=== PATIENT | male | born 1965 | race American Indian/Alaskan Native ===

== ENCOUNTER 2019-01-06 14:59 | Observation (INO) | payer SELFPAY ==
--- NOTE | 2019-01-06 15:26 | Event Note ---
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 Further treatment and workup at subsequent clinical providers discretion. Patient/guardian urged not to elope from the ED as their condition may be serious if not clinically assessed and managed. Initial orders include: ekg labs
--- NOTE | 2019-01-06 15:52 | XRay Report ---
CHEST 2 VIEWS INDICATION: chest pain and sob. COMPARISON: None FINDINGS: Support devices: None. Heart: Within normal limits. Lungs/pleura: No acute air space or interstitial disease. No pneumothorax. Additional findings: None. IMPRESSION: No acute findings. Signer Name: Tuan Walker Jr, MD Signed: 01/06/2019 3:48 PM Workstation Name: [id number]
[2019-01-06 16:14] LABS: Hematocrit 46.4 % (35.5-45.6); Hemoglobin 15.9 gm/dl (11.8-15.2); Mean Corpuscular HGB Conc 34 % (32-34); Mean Corpuscular Volume 85 fl (84-94); Platelet Count 197 K/mm3 (140-440); Red Blood Count 5.48 M/mm3 (3.65-5.03); Red Cell Distribution Width 12.7 % (13.2-15.2)
[2019-01-06 16:30] LABS: Alanine Aminotransferase 17 units/L (7-56); Albumin 4.7 g/dL (3.9-5); BUN/Creatinine Ratio 12; Blood Urea Nitrogen 11 mg/dL (9-20); Calcium 9.5 mg/dL (8.4-10.2); Hemolysis Index 9
--- NOTE | 2019-01-06 16:42 | Emergency Department Report ---
ED General Adult HPI - General Chief complaint: Headache Stated complaint: R ARM NUMBNESS Time Seen by Provider: 01/06/19 16:10 Source: patient Mode of arrival: Ambulatory Limitations: No Limitations - History of Present Illness Initial comments: Patient is a 53-year-old male that presents to the emergency room with complaints of chest pain, shortness of breath, dyspnea on exertion, right arm pain and swelling and headache. Patient states his headache has been going on for 2 weeks. Patient states his chest pain shortness of breath going on for 3 days. Patient states his arm pain has been going on for 2 weeks. Patient states his chest pain and shortness of breath or better with rest and worse with exertion. Patient states his headache and his arm pain are better with rest and worse with movement. Patient denies fever chills. Patient states she has a past medical history of hypertension but is not taking any medications. -: Sudden Location: head, chest, upper extremity Radiation: non-radiation Severity scale (0 -10): 7 Quality: stabbing Consistency: constant Improves with: rest Worsens with: movement Associated Symptoms: chest pain, headaches, shortness of breath. denies: confusion, cough, diaphoresis, fever/chills, loss of appetite, malaise, nausea/vomiting, rash, seizure, syncope, weakness - Related Data Home Medications Medication Instructions Recorded Confirmed Last Taken No Known Home Medications [No 01/06/19 01/06/19 Unknown Reported Home Medications] Allergies Allergy/AdvReac Type Severity Reaction Status Date / Time No Known Allergies Allergy Unverified 01/06/19 15:02 ED Review of Systems ROS: Stated complaint: R ARM NUMBNESS Other details as noted in HPI Constitutional: denies: chills, fever Eyes: denies: eye pain, eye discharge, vision change ENT: denies: ear pain, throat pain Respiratory: shortness of breath, SOB with exertion, SOB at rest. denies: cough, wheezing Cardiovascular: chest pain, dyspnea on exertion. denies: palpitations Endocrine: no symptoms reported Gastrointestinal: denies: abdominal pain, nausea, vomiting, diarrhea Genitourinary: denies: urgency, dysuria Musculoskeletal: denies: back pain, joint swelling, arthralgia Skin: denies: rash, lesions Neurological: headache. denies: weakness, paresthesias Psychiatric: denies: anxiety, depression Hematological/Lymphatic: denies: easy bleeding, easy bruising ED Past Medical Hx - Past Medical History Previous Medical History?: Yes Hx Hypertension: Yes - Surgical History Past Surgical History?: No - Family History Family history: no significant - Social History Smoking Status: Never Smoker Substance Use Type: None - Medications Home Medications: Home Medications Medication Instructions Recorded Confirmed Last Taken Type No Known Home Medications [No 01/06/19 01/06/19 Unknown History Reported Home Medications] ED Physical Exam - General Limitations: No Limitations General appearance: alert, in no apparent distress - Head Head exam: Present: atraumatic, normocephalic - Eye Eye exam: Present: normal appearance, PERRL Pupils: Present: normal accommodation - ENT ENT exam: Present: mucous membranes moist - Neck Neck exam: Present: normal inspection - Respiratory Respiratory exam: Present: normal lung sounds bilaterally. Absent: respiratory distress, wheezes, rales - Cardiovascular Cardiovascular Exam: Present: regular rate, normal rhythm. Absent: systolic murmur, diastolic murmur, rubs, gallop - GI/Abdominal GI/Abdominal exam: Present: soft, normal bowel sounds - Rectal Rectal exam: Present: deferred - Extremities Exam Extremities exam: Present: normal inspection, full ROM, tenderness - Back Exam Back exam: Present: normal inspection - Neurological Exam Neurological exam: Present: alert, oriented X3 - Psychiatric Psychiatric exam: Present: normal affect, normal mood - Skin Skin exam: Present: warm, dry, intact, normal color. Absent: rash ED Course Vital Signs 01/06/19 01/06/19 15:11 17:13 Temperature 98.3 F Pulse Rate 108 H 88 Respiratory 18 16 Rate Blood Pressure 174/113 Blood Pressure 166/107 [Left] O2 Sat by Pulse 99 96 Oximetry - Reevaluation(s) Reevaluation #1: I discussed all results the patient. I Discussed plan of care patient. Patient will be admitted to the hospitalist service. Patient agrees to plan of care. 01/06/19 19:57 - Consultations Consultation #1: Hospitalist consultation. Hospitalist to admit patient 01/06/19 19:58 ED Medical Decision Making - Lab Data Result diagrams: 01/06/19 15:51 01/06/19 15:51 - EKG Data -: EKG Interpreted by Me EKG shows normal: sinus rhythm, axis, intervals, QRS complexes, ST-T waves Rate: tachycardia - EKG Data Interpretation: other (ventricular trigeminy) - Radiology Data Radiology results: report reviewed, image reviewed CTA CHEST WITH IV CONTRAST INDICATION / CLINICAL INFORMATION: sob. cp. TECHNIQUE: Axial CT images were obtained through the chest after injection of 100 cc IV contrast. 3 plane MIP and/or 3D reconstructions were produced. All CT scans at this location are performed using CT dose reduction for ALARA by means of automated exposure control. COMPARISON: Chest radiograph, 01/06/2019 FINDINGS: PULMONARY ARTERIES: No pulmonary emboli. THORACIC AORTA: No significant abnormality. HEART: No significant abnormality. CORONARY ARTERIES: No significant calcification. PLEURA: No pleural effusion. No pneumothorax. LYMPH NODES: No significant adenopathy. LUNGS: No acute air space or interstitial disease. ADDITIONAL FINDINGS: None. UPPER ABDOMEN: No acute findings. There are a few simple cysts arising from the lateral aspect of the left kidney, the largest cyst measures 3.9 cm. SKELETAL STRUCTURES: Moderate spondylitic changes are noted throughout the mid and lower thoracic spine. IMPRESSION: 1. No CT evidence for pulmonary embolism. 2. No acute findings. CT HEAD WITHOUT CONTRAST INDICATION : headache. TECHNIQUE: Axial, coronal and sagittal CT imaging was performed from the skull apex through the skull base without contrast. All CT scans at this location are performed using CT dose reduction for ALARA by means of automated exposure control. COMPARISON: None available. FINDINGS: PARENCHYMA: No mass, midline shift, hemorrhage, extraaxial collection or acute territorial infarction. VENTRICLES: Symmetric and normal in size. SOFT TISSUES: Soft tissues including the orbits appear normal. BONES: No acute osseous abnormality. SINUSES: No significant abnormality. ADDITIONAL FINDINGS: None. IMPRESSION: No acute intracranial abnormality. DUPLEX DOPPLER RIGHT UPPER EXTREMITY VEINS INDICATION: Right upper extremity numbness and tingling. FINDINGS: There is no thrombus within the deep veins of the right upper extremity from the jugular vein to the forearm veins. There is normal compression and augmentation on spectral analysis. IMPRESSION: No sonographic evidence for DVT in the right upper extremity. Critical Care Time: Yes Critical care attestation.: If time is entered above; I have spent that time in minutes in the direct care of this critically ill patient, excluding procedure time. Critical Care Time: 35 minutes ED Disposition Clinical Impression: Ventricular bigeminy, SOB (shortness of breath), Right arm pain, Right arm num bness Chest pain Qualifiers: Chest pain type: unspecified Qualified Code(s): R07.9 - Chest pain, unspecified Headache Qualifiers: Headache type: unspecified Headache chronicity pattern: acute headache Intractability: not intractable Qualified Code(s): R51 - Headache Hypertension Qualifiers: Hypertension type: essential hypertension Qualified Code(s): I10 - Essential (primary) hypertension Disposition: OP ADMIT IP TO THIS HOSP Is pt being admited?: Yes Does the pt Need Aspirin: No Condition: Critical Instructions: Hypertension (ED) Time of Disposition: 20:00
--- NOTE | 2019-01-06 16:56 | Vascular Lab Report ---
DUPLEX DOPPLER RIGHT UPPER EXTREMITY VEINS INDICATION: Right upper extremity numbness and tingling. FINDINGS: There is no thrombus within the deep veins of the right upper extremity from the jugular vein to the forearm veins. There is normal compression and augmentation on spectral analysis. IMPRESSION: No sonographic evidence for DVT in the right upper extremity. Signer Name: Romain Mccullough MD Signed: 01/06/2019 4:52 PM Workstation Name: [id number]
[2019-01-06] MEDS ORDERED: ASPIRIN PO ONE (17:23)
--- NOTE | 2019-01-06 19:40 | Cat Scan Report ---
CTA CHEST WITH IV CONTRAST INDICATION / CLINICAL INFORMATION: sob. cp. TECHNIQUE: Axial CT images were obtained through the chest after injection of 100 cc IV contrast. 3 plane MIP an d/or 3D reconstructions were produced. All CT scans at this location are performed using CT dose redu ction for [facility] by means of automated exposure control. COMPARISON: Chest radiograph, 01/06/2019 FINDINGS: PULMONARY ARTERIES: No pulmonary emboli. THORACIC AORTA: No significant abnormality. HEART: No significant abnormality. CORONARY ARTERIES: No significant calcification. PLEURA: No pleural effusion. No pneumothorax. LYMPH NODES: No significant adenopathy. LUNGS: No acute air space or interstitial disease. ADDITIONAL FINDINGS: None. UPPER ABDOMEN: No acute findings. There are a few simple cysts arising from the lateral aspect of the left kidney, the largest cyst measures 3.9 cm. SKELETAL STRUCTURES: Moderate spondylitic changes are noted throughout the mid and lower thoracic spi ne. IMPRESSION: 1. No CT evidence for pulmonary embolism. 2. No acute findings. Signer Name: Charla Gonzales MD Signed: 01/06/2019 7:36 PM Workstation Name: [id number]
--- NOTE | 2019-01-06 19:47 | Cat Scan Report ---
CT HEAD WITHOUT CONTRAST INDICATION : headache. TECHNIQUE: Axial, coronal and sagittal CT imaging was performed from the skull apex through the skul l base without contrast. All CT scans at this location are performed using CT dose reduction for ALA RA by means of automated exposure control. COMPARISON: None available. FINDINGS: PARENCHYMA: No mass, midline shift, hemorrhage, extraaxial collection or acute territorial infarctio n. VENTRICLES: Symmetric and normal in size. SOFT TISSUES: Soft tissues including the orbits appear normal. BONES: No acute osseous abnormality. SINUSES: No significant abnormality. ADDITIONAL FINDINGS: None. IMPRESSION: No acute intracranial abnormality. Signer Name: Chuy Jang MD Signed: 01/06/2019 7:43 PM Workstation Name: [id number]
[2019-01-06] MEDS ORDERED: NORVASC PO ONE (21:09)
[2019-01-06] MEDS ORDERED: ZOFRAN IV PRN (21:30)
[2019-01-06] MEDS ORDERED: MORPHINE IV PRN (21:30)
[2019-01-06] MEDS ORDERED: SODIUM CHLORIDE FLUSH SYRINGE 10 ML IV PRN ×2 (21:30→21:31)
[2019-01-06] MEDS ORDERED: NITROSTAT SL PRN (21:31)
--- NOTE | 2019-01-06 21:33 | History and Physical Report ---
History of Present Illness Chief complaint: My chest keeps hurting off and on History of present illness: 53 YO Male with HTN, Medication Noncompliance presents to ED for evaluation. Pt states that he has experienced pain in his chest over the past 2 weeks with worsening symptoms over the past 1 day. Pt also reports chest palpitations. Pt states that pain in 6-8/10, Intermittent initially but has now become constant, worsened with exertion, not relieved with rest, stabbing, nonradiating, associated with some shortness of breath. Pt denies fever, chills, palpitations, NVD, Trauma, BRBPR, Productive cough, skin rash, unilateral leg swelling, calf pain, individual/family history of DVT/PE/Bleeding/Blood Clotting disorders, Syncope, hemoptysis, or known ill contacts. Pt also reports arm numbness, and neck pain. Pt transported to [facility] via private vehicle. Pt seen and evaluated in ED and found to have angina, as well as arrythmia on EKG. Pt admitted to telemetry and placed on observation status. Cardiology consulted in ED. Echo ordered and is pending at time of admission. No prior admission for review. No medication listed for reconciliation at time of admission. Past History Past Medical History: hypertension Past Surgical History: No surgical history, Other (reviewed) Social history: , lives with family Family history: CAD, diabetes, hypertension Medications and Allergies Allergies Allergy/AdvReac Type Severity Reaction Status Date / Time No Known Allergies Allergy Unverified 01/06/19 15:02 Home Medications Medication Instructions Recorded Confirmed Last Taken Type Aspirin [Adult Aspirin] 81 mg PO DAILY #30 tablet. 01/06/19 Unknown Rx Pantoprazole [Protonix TAB] 20 mg PO QDAY #30 tablet. 01/06/19 Unknown Rx Prednisone [predniSONE 10 mg 10 mg PO .TAPER #1 tab.ds.pk 01/06/19 Unknown Rx (6-Day Pack, 21 Tabs)] Simvastatin 10 mg PO QHS #30 tablet 01/06/19 Unknown Rx amLODIPine [Norvasc] 5 mg PO DAILY #30 tab 01/06/19 Unknown Rx Active Meds: Active Medications Acetaminophen (Tylenol) 650 mg PO Q4H PRN PRN Reason: Pain MILD(1-3)/Fever >100.5/FLOREZ Morphine Sulfate (Morphine) 2 mg IV Q4H PRN PRN Reason: Pain, Moderate (4-6) Ondansetron HCl (Zofran) 4 mg IV Q8H PRN PRN Reason: Nausea And Vomiting Sodium Chloride (Sodium Chloride Flush Syringe 10 Ml) 10 ml IV BID LESLEE Sodium Chloride (Sodium Chloride Flush Syringe 10 Ml) 10 ml IV PRN PRN PRN Reason: LINE FLUSH Review of Systems Constitutional: no weight loss, no fever, no sweats Ears, nose, mouth and throat: no ear pain, no tinnitis, no nasal congestion, no sinus pressure Cardiovascular: chest pain, palpitations, rapid/irregular heart beat, shortness of breath, no claudication Respiratory: no cough, no excessive sputum, no shortness of breath Gastrointestinal: no nausea, no vomiting, no diarrhea, no constipation Genitourinary Male: no hematuria, no discharge, no urinary frequency, no urinary hesitancy Rectal: no pain, no incontinence, no bleeding Musculoskeletal: no neck stiffness, no neck pain, no shooting arm pain, no arm numbness/tingling, no low back pain Integumentary: no rash, no pruritis, no redness, no sores, no wounds Neurological: no head injury, no paralysis, no parathesias, no tingling, no syncope, no ataxia Psychiatric: no anxiety, no change in sleep habits, no sleep disturbances, no insomnia, no change in appetite, no change in libido, no suicidal ideation Endocrine: no cold intolerance, no heat intolerance, no polyphagia, no excessive thirst, no polyuria Hematologic/Lymphatic: no easy bruising, no easy bleeding, no lymphadenopathy Allergic/Immunologic: no urticaria, no allergic rhinitis, no persistent infections, no anaphylaxis Exam - Constitutional Vitals: Temp Pulse Resp BP Pulse Ox 98.3 F 89 23 155/109 99 01/06/19 15:11 01/06/19 21:15 01/06/19 21:15 01/06/19 21:15 01/06/19 21:15 General appearance: Present: mild distress - EENT Eyes: Present: PERRL ENT: hearing intact, clear oral mucosa - Neck Neck: Present: supple, normal ROM - Respiratory Respiratory effort: normal Respiratory: bilateral: CTA - Cardiovascular Heart Sounds: Present: S1 & S2. Absent: rub, click - Extremities Extremities: pulses symmetrical, No edema Peripheral Pulses: within normal limits - Abdominal General gastrointestinal: Present: soft, non-tender, non-distended, normal bowel sounds Male genitourinary: Present: normal - Integumentary Integumentary: Present: clear, warm, dry - Musculoskeletal Musculoskeletal: gait normal, strength equal bilaterally - Psychiatric Psychiatric: appropriate mood/affect, intact judgment & insight - Neurologic Neurologic: CNII-XII intact, moves all extremities Results - Labs CBC & Chem 7: 01/06/19 15:51 01/06/19 15:51 Labs: Abnormal lab results 01/06/19 01/06/19 Range/Units 15:51 15:51 RBC 5.48 H (3.65-5.03) M/mm3 Hgb 15.9 H (11.8-15.2) gm/dl Hct 46.4 H (35.5-45.6) % RDW 12.7 L (13.2-15.2) % Glucose 114 H (75-100) mg/dL Assessment and Plan - Patient Problems (1) Angina at rest Current Visit: Yes Status: Acute Plan to address problem: Admit to telemetry, serial cardiac enzymes, Echo, morphine, supplemental oxygen, nitro, aspirin, cardiology consulted in ED. (2) Right arm numbness Current Visit: Yes Status: Acute Plan to address problem: Cervical Radiculopathy: Outpatient physical therapy, IV steroid therapy, supportive care. (3) DVT prophylaxis Current Visit: Yes Status: Acute Plan to address problem: SCD to BLE while in bed. Pt ambulatory
[2019-01-06] MEDS: SODIUM CHLORIDE FLUSH SYRINGE 10 ML IV SCH (21:57)
[2019-01-06] MEDS ORDERED: BABY ASPIRIN ONE (21:58)
[2019-01-06] MEDS ORDERED: BABY ASPIRIN PO ONE (22:05)
[2019-01-06 22:13] LABS: Chol/HDL Ratio 3.29 %
[2019-01-06] MEDS: TYLENOL PO PRN (23:33)
[2019-01-07] MEDS: TYLENOL PO PRN (08:09)
--- NOTE | 2019-01-07 09:54 | Progress Note ---
Assessment and Plan Assessment and plan: Chest pain. CTA of the chest negative. Continue to follow cardiac isoenzymes and EKGs. Cardiology consultation pending. Cervical radiculopathy. Outpatient physical therapy. History Interval history: No new issues overnight. Hospitalist Physical - Constitutional Vitals: Temp Pulse Resp BP Pulse Ox 97.9 F 77 18 107/73 98 01/07/19 04:41 01/07/19 04:41 01/07/19 04:41 01/07/19 04:41 01/07/19 04:41 General appearance: Present: no acute distress - EENT Eyes: Present: PERRL, EOM intact ENT: hearing intact, clear oral mucosa, dentition normal - Neck Neck: Present: supple, normal ROM - Respiratory Respiratory effort: normal Respiratory: bilateral: CTA - Cardiovascular Rhythm: regular Heart Sounds: Present: S1 & S2. Absent: gallop, rub - Extremities Extremities: no ischemia, No edema, Full ROM - Abdominal General gastrointestinal: soft, non-tender, non-distended, normal bowel sounds - Integumentary Integumentary: Present: clear, warm, dry - Neurologic Neurologic: CNII-XII intact, moves all extremities Results - Labs CBC & Chem 7: 01/06/19 15:51 01/06/19 15:51 Labs: Laboratory Last Values WBC 6.9 K/mm3 (4.5-11.0) 01/06/19 15:51 RBC 5.48 M/mm3 (3.65-5.03) H 01/06/19 15:51 Hgb 15.9 gm/dl (11.8-15.2) H 01/06/19 15:51 Hct 46.4 % (35.5-45.6) H 01/06/19 15:51 MCV 85 fl (84-94) 01/06/19 15:51 MCH 29 pg (28-32) 01/06/19 15:51 MCHC 34 % (32-34) 01/06/19 15:51 RDW 12.7 % (13.2-15.2) L 01/06/19 15:51 Plt Count 197 K/mm3 (140-440) 01/06/19 15:51 194.88 ng/mlDDU (0-234) 01/06/19 15:51 Sodium 138 mmol/L (137-145) 01/06/19 15:51 Potassium 4.1 mmol/L (3.6-5.0) 01/06/19 15:51 Chloride 98.2 mmol/L (98-107) 01/06/19 15:51 Carbon Dioxide 30 mmol/L (22-30) 01/06/19 15:51 14 mmol/L 01/06/19 15:51 BUN 11 mg/dL (9-20) 01/06/19 15:51 0.9 mg/dL (0.8-1.5) 01/06/19 15:51 Estimated GFR > 60 ml/min 01/06/19 15:51 12 % 01/06/19 15:51 Glucose 114 mg/dL (75-100) H 01/06/19 15:51 Calcium 9.5 mg/dL (8.4-10.2) 01/06/19 15:51 Magnesium 2.10 mg/dL (1.7-2.3) 01/06/19 15:51 0.50 mg/dL (0.1-1.2) 01/06/19 15:51 AST 16 units/L (5-40) 01/06/19 15:51 ALT 17 units/L (7-56) 01/06/19 15:51 100 units/L (35-129) 01/06/19 15:51 < 0.010 ng/mL (0.00-0.029) 01/07/19 04:37 8.2 g/dL (6.3-8.2) 01/06/19 15:51 4.7 g/dL (3.9-5) 01/06/19 15:51 1.3 % 01/06/19 15:51 Triglycerides 78 mg/dL (2-149) 01/06/19 21:32 Cholesterol 188 mg/dL (50-199) 01/06/19 21:32 134 mg/dL (50-130) H 01/06/19 21:32 57 mg/dL (40-59) 01/06/19 21:32 3.29 % 01/06/19 21:32 Active Medications - Current Medications Current Medications: Generic Name Dose Route Start Last Admin Trade Name Freq PRN Reason Stop Dose Admin Acetaminophen 650 mg 01/06/19 21:30 01/07/19 08:09 Tylenol PO 650 mg Q4H PRN Administration Pain MILD(1-3)/Fever >100.5/FLOREZ Morphine Sulfate 2 mg 01/06/19 21:30 Morphine IV Q4H PRN Pain, Moderate (4-6) Nitroglycerin 0.4 mg 01/06/19 21:31 Nitrostat SL Q5M PRN Chest Pain Ondansetron HCl 4 mg 01/06/19 21:30 Zofran IV Q8H PRN Nausea And Vomiting Sodium Chloride 10 ml 01/06/19 22:00 01/06/19 21:57 Sodium Chloride Flush Syringe 10 Ml IV 10 ml BID LESLEE Administration Sodium Chloride 10 ml 01/06/19 21:30 Sodium Chloride Flush Syringe 10 Ml IV PRN PRN LINE FLUSH Sodium Chloride 10 ml 01/06/19 21:31 Sodium Chloride Flush Syringe 10 Ml IV PRN PRN LINE FLUSH
[2019-01-07] MEDS: SODIUM CHLORIDE FLUSH SYRINGE 10 ML IV SCH ×2 (10:06→22:03)
--- NOTE | 2019-01-07 10:48 | Consultation ---
History of Present Illness Consult date: 01/07/19 Consult reason: chest pain History of present illness: Impression Atypical right arm and neck pain, not exertional related, intermittent for over 2 weeks Trop negative x 4 CTA normal heart no calcifications HTN Plan At this point low risk for ACS, ok to discharge home, advise outpt stress test to stratify CAD risk Past History Past Medical History: hypertension Past Surgical History: No surgical history, Other (reviewed) Social history: , lives with family Family history: CAD, diabetes, hypertension Medications and Allergies Allergies Allergy/AdvReac Type Severity Reaction Status Date / Time No Known Allergies Allergy Unverified 01/06/19 15:02 Home Medications Medication Instructions Recorded Confirmed Last Taken Type Aspirin [Adult Aspirin] 81 mg PO DAILY #30 tablet. 01/06/19 Unknown Rx Pantoprazole [Protonix TAB] 20 mg PO QDAY #30 tablet. 01/06/19 Unknown Rx Prednisone [predniSONE 10 mg 10 mg PO .TAPER #1 tab.ds.pk 01/06/19 Unknown Rx (6-Day Pack, 21 Tabs)] Simvastatin 10 mg PO QHS #30 tablet 01/06/19 Unknown Rx amLODIPine [Norvasc] 5 mg PO DAILY #30 tab 01/06/19 Unknown Rx Active Meds: Active Medications Acetaminophen (Tylenol) 650 mg PO Q4H PRN PRN Reason: Pain MILD(1-3)/Fever >100.5/FLOREZ Last Admin: 01/07/19 08:09 Dose: 650 mg Documented by: Morphine Sulfate (Morphine) 2 mg IV Q4H PRN PRN Reason: Pain, Moderate (4-6) Nitroglycerin (Nitrostat) 0.4 mg SL Q5M PRN PRN Reason: Chest Pain Ondansetron HCl (Zofran) 4 mg IV Q8H PRN PRN Reason: Nausea And Vomiting Sodium Chloride (Sodium Chloride Flush Syringe 10 Ml) 10 ml IV BID LESLEE Last Admin: 01/07/19 10:06 Dose: 10 ml Documented by: Sodium Chloride (Sodium Chloride Flush Syringe 10 Ml) 10 ml IV PRN PRN PRN Reason: LINE FLUSH Sodium Chloride (Sodium Chloride Flush Syringe 10 Ml) 10 ml IV PRN PRN PRN Reason: LINE FLUSH Review of Systems All systems: negative (stated in impression) Physical Examination Vital Signs Temp Pulse Resp BP Pulse Ox 98.3 F 108 H 18 174/113 99 01/06/19 15:11 01/06/19 15:11 01/06/19 15:11 01/06/19 15:11 01/06/19 15:11 General appearance: no acute distress HEENT: Positive: PERRL, EOMI Neck: Positive: neck supple Cardiac: Positive: Reg Rate and Rhythm, S1/S2 Lungs: Positive: Normal Exam Neuro: Positive: Grossly Intact Abdomen: Positive: Soft. Negative: Pulsations/Bruits Extremities: Present: normal Results 01/06/19 15:51 01/06/19 15:51 Cardiac Enzymes 01/06/19 Range/Units 15:51 AST 16 (5-40) units/L Lipids 01/06/19 Range/Units 21:32 Triglycerides 78 (2-149) mg/dL Cholesterol 188 (50-199) mg/dL HDL Cholesterol 57 (40-59) mg/dL Cholesterol/HDL Ratio 3.29 % CBC 01/06/19 Range/Units 15:51 WBC 6.9 (4.5-11.0) K/mm3 RBC 5.48 H (3.65-5.03) M/mm3 Hgb 15.9 H (11.8-15.2) gm/dl Hct 46.4 H (35.5-45.6) % Plt Count 197 (140-440) K/mm3 Comprehensive Metabolic Panel 01/06/19 Range/Units 15:51 Sodium 138 (137-145) mmol/L Potassium 4.1 (3.6-5.0) mmol/L Chloride 98.2 (98-107) mmol/L Carbon Dioxide 30 (22-30) mmol/L BUN 11 (9-20) mg/dL Creatinine 0.9 (0.8-1.5) mg/dL Glucose 114 H (75-100) mg/dL Calcium 9.5 (8.4-10.2) mg/dL AST 16 (5-40) units/L ALT 17 (7-56) units/L Alkaline Phosphatase 100 (35-129) units/L Total Protein 8.2 (6.3-8.2) g/dL Albumin 4.7 (3.9-5) g/dL
--- NOTE | 2019-01-08 07:47 | Discharge Summary ---
Providers - Providers Date of Admission: 01/06/19 21:30 Date of discharge: 01/08/19 Attending physician: LUPE ABREU 01/06/19 Consult to Cardiac Rehabilitation [CONS] Routine Reason For Exam: Phase I 01/06/19 21:32 Consult to Cardiology [CONS] Routine Consulting Provider: DEMIAN MIRZA Reason For Exam: angina Primary care physician: CLAY GRINDER Hospitalization Reason for admission: cp Condition: Critical Hospital course: 53 YO Male with HTN, Medication Noncompliance presents to ED for chest pain over the past 2 weeks [employer] with worsening symptoms over the course of the day prior to admission. Patient was also noted to have atypical right arm and neck pain. The patient's symptoms were nonexertional. Patient was noted to have a troponin I was negative 4. EKG showed no acute findings. CTA of the chest showed normal heart and no calcifications. Patient was seen by cardiology and felt to be at low risk for ACS and could be discharged home. Etiology of chest pain is likely GERD. Cardiology advised patient to do outpatient stress testing. Therefore, patient will be discharged home and is to follow-up as an outpatient. Dedicated discharge time 32 minutes. Disposition: DC-01 TO HOME OR SELFCARE Time spent for discharge: 32 Core Measure Documentation - Palliative Care Palliative Care/ Comfort Measures: Not Applicable - Core Measures Any of the following diagnoses?: none Exam - Constitutional Vitals: Temp Pulse Resp BP Pulse Ox 98.1 F 71 18 119/88 99 01/08/19 04:01 01/08/19 04:01 01/08/19 04:01 01/08/19 04:01 01/08/19 04:01 General appearance: Present: no acute distress, well-nourished - EENT Eyes: Present: PERRL ENT: hearing intact, clear oral mucosa - Neck Neck: Present: supple, normal ROM - Respiratory Respiratory effort: normal Respiratory: bilateral: CTA - Cardiovascular Heart Sounds: Present: S1 & S2. Absent: rub, click - Extremities Extremities: pulses symmetrical, No edema Peripheral Pulses: within normal limits - Abdominal General gastrointestinal: Present: soft, non-tender, non-distended, normal bowel sounds Male genitourinary: Present: normal - Integumentary Integumentary: Present: clear, warm, dry - Musculoskeletal Musculoskeletal: gait normal, strength equal bilaterally - Psychiatric Psychiatric: appropriate mood/affect, intact judgment & insight - Neurologic Neurologic: CNII-XII intact, moves all extremities Plan Activity: no restrictions Weight Bearing Status: Full Weight Bearing Diet: regular Additional Instructions: Follow-up with Dr. Mirza for outpatient stress test Follow up with: PRIMARY CAREMD [Primary Care Provider] - 7 Days DEMIAN MIRZA MD [Staff Physician] - 7 Days Prescriptions: Aspirin [Adult Aspirin] 81 mg PO DAILY #30 tablet. amLODIPine [Norvasc] 5 mg PO DAILY #30 tab Prednisone [predniSONE 10 mg (6-Day Pack, 21 Tabs)] 10 mg PO .TAPER #1 tab.ds.pk Pantoprazole [Protonix TAB] 20 mg PO QDAY #30 tablet. Simvastatin 10 mg PO QHS #30 tablet Other Discharge Orders: Physicial Therapy (Amb) Location: None Selected
[2019-01-08 09:41] VITALS: BP 122/89
== END 2019-01-08 10:34 | disposition home or self-care (01) ==
LOC: ED 14:59 → 4A 21:30
PROVIDERS: ADMIT Internal Medicine; ATTEND Hospitalist
DX: I20.9 Angina pectoris, unspecified (principal); R20.0 Anesthesia of skin; I10 Essential (primary) hypertension; M54.12 Radiculopathy, cervical region; Z82.49 Family history of ischemic heart disease and other diseases of the circulatory system; Z83.3 Family history of diabetes mellitus; Z79.899 Other long term (current) drug therapy
CPT/HCPCS: 36415; 70450; 71046; 71275; 80053; 80061; 83735; 84484; 85027; 85379; 93005; 93010; 93306; 93971; 94760; 99291; G0378; Q9967